=== PATIENT | male | born 1980 | race Two or more races ===

== ENCOUNTER 2016-12-28 11:54 | Emergency (ER) | payer MEDICAID ==
[2016-12-28 12:12] VITALS: BP 137/84
--- NOTE | 2016-12-28 13:25 | ER Document Report ---
HPI - HPI Pain Level: 4 Notes: Patient is a 36-year-old autistic male who presents the ED with mother complaining of left wrist and left hand pain status post hitting a door yesterday. Mother states that he has self-harm behavior regularly and this is the third door that is broken. Mother states that she has noticed some swelling , abrasion, and bruising to the left hand and wrist. Mother states that patient has expressed pain to the area as well. He has not had any over-the- counter meds for symptoms. Denies any drug allergies, smoking, illicit drug use. Pain does not radiate. Pt is still moving his hand and wrist around without difficulty. Per mother: Denies any headache, fever, head injury, neck pain, chest pain, syncope, cough, shortness of breath, wheeze, dyspnea, abdominal pain, nausea/vomiting/diarrhea, muscle paralysis/weakness, or rash. - ROS ROS Unobtainable: Yes ROS unobtainable due to patient's medical condition - see hpi otherwise. - DERM Skin Color: Normal Past Medical History - General Information source: Parent Cannot obtain history due to: Mentally challenged - Social History Smoking Status: Never Smoker Family History: Reviewed & Not Pertinent - Past Medical History Cardiac Medical History: Reports: Hx Hypercholesterolemia Denies: Hx Coronary Artery Disease, Hx Heart Attack, Hx Hypertension Pulmonary Medical History: Denies: Hx Asthma, Hx Bronchitis, Hx COPD, Hx Pneumonia Neurological Medical History: Reports: Hx Seizures - age 8 unknown reason,again age 11. Denies: Hx Cerebrovascular Accident Endocrine Medical History: Reports: Hx Diabetes Mellitus Type 2 Renal/ Medical History: Denies: Hx Peritoneal Dialysis Musculoskeltal Medical History: Reports Hx Arthritis - B/L HANDS, KNEES, FEET Past Surgical History: Reports: Hx Bowel Surgery - hernia repair, Hx Oral Surgery, Hx Testicular Surgery, Hx Tonsillectomy - Immunizations Hx Diphtheria, Pertussis, Tetanus Vaccination: Yes Vertical Provider Document - CONSTITUTIONAL Agree With Documented VS: Yes Notes: PHYSICAL EXAMINATION: GENERAL: Well-appearing, well-nourished and in no acute distress. LUNGS: Breath sounds clear to auscultation bilaterally and equal. No wheezes rales or rhonchi. HEART: Regular rate and rhythm without murmurs, rubs, gallops. Musculoskeletal: Left hand: FROM to passive/active. Strength 5+/5. + mild swelling and small abrasions to the posterior hand. N/V intact distal. No obvious tenderness to palp of the hand or scaphoid. Left wrist: + abrasion to the postero-dorsal wrist. + mild swelling and ecchymosis. + tenderness to palp. FROM to passive/active. N/V intact distal. Extremities: No cyanosis, clubbing, or edema b/l. Peripheral pulses 2+. Capillary refill less than 3 seconds. NEUROLOGICAL: Normal sensory, motor exams PSYCH: Normal mood, normal affect. SKIN: Warm, Dry, normal turgor, no rashes or lesions noted. - INFECTION CONTROL TRAVEL OUTSIDE OF THE [place] IN LAST 30 DAYS: No - RESPIRATORY O2 Sat by Pulse Oximetry: 100 Course - Re-evaluation Re-evalutation: 12/28/16 14:23 Patient is an afebrile, well-hydrated, 36yo autistic male who presents to the ED with mother with a Lt wrist/hand contusion/injury. Vitals are stable. PE otherwise unremarkable. Mother stated that they had to leave because pt's sugar is getting low. We offerred food and juice in the ED, but mother declined and just wanted to leave after getting the XR's performed. Reviewed with the mother of the conservative measures for his symptoms and made sure we had a good phone number so that we can call her with the results and any further guidance. Mother signed AMA. Low suspicion for any septic joint, sepsis, compartment syndrome, neurovasc compromise, fracture, or other emergent condition at this time. I did not see any obvious fracture on my view of the XR' s, but we will wait for the formal read from the radiologist. Recheck with PCM in 2-3 days. Consider consult with Ortho/physical therapy. Return to the ED with any worsening/concerning symptoms otherwise as reviewed discharge. Mother is in agreement. 12/28/16 15:00 XR unremarkable for acute fx or dislocation. + swelling noted. Left VM on mother's phone to call me back to review results. 12/28/16 15:49 Called mother again and she answered. Reviewed XR result and d/c instructions again. Mother is in agreement with plan. - Vital Signs Vital signs: Temp Pulse Resp BP Pulse Ox 98 F 85 20 137/84 H 100 12/28/16 12:08 12/28/16 12:08 12/28/16 12:08 12/28/16 12:08 12/28/16 12:08 Discharge - Discharge Clinical Impression: Arm pain, left Condition: Stable Disposition: HOME, SELF-CARE Instructions: Acetaminophen, Ice & Elevation ([facility]) Additional Instructions: Rest, Ice, Compression, Elevation Tylenol/ibuprofen as needed Light stretches daily Strength exercises as able Moist heat and massage may help F/u with your PCP in 2-3 days for a recheck Consider consult(s) with Orthopedics/physical therapy for ongoing/worsening symptoms Return to the ED with any worsening symptoms and/or development of fever, headache, chest pain, palpitations, syncope, shortness of breath, trouble breathing, abdominal pain, n/v/d, muscle weakness/paralysis, numbness/tingling, swelling, redness, or other worsening symptoms that are concerning to you. Forms: Elevated Blood Pressure Referrals: YASMIN TELLES MD [ACTIVE STAFF] - 12/31/16
--- NOTE | 2016-12-28 14:36 | RADIOLOGY REPORT (SQ) ---
EXAM DESCRIPTION: HAND LEFT 3 VIEWS; WRIST LEFT 3 VIEWS COMPLETED DATE/TIME: 12/28/2016 2:13 pm REASON FOR STUDY: left wrist/hand pain s/p hitting a door COMPARISON: None. EXAM PARAMETERS: NUMBER OF VIEWS: Six views. TECHNIQUE: AP, lateral and oblique radiographic images acquired of the left hand with AP, lateral ob lique views of the left wrist. LIMITATIONS: None. FINDINGS: MINERALIZATION: Normal. BONES: No acute fracture or dislocation. No worrisome bone lesions. JOINTS: No effusions. SOFT TISSUES: Mild soft tissue swelling along the distal forearm. OTHER: No other significant finding. IMPRESSION: Soft tissue swelling without evidence of fracture. TECHNICAL DOCUMENTATION: JOB ID: [id number] [employer]- All Rights Reserved
--- NOTE | 2016-12-28 14:36 | RADIOLOGY REPORT (SQ) ---
EXAM DESCRIPTION: HAND LEFT 3 VIEWS; WRIST LEFT 3 VIEWS COMPLETED DATE/TIME: 12/28/2016 2:13 pm REASON FOR STUDY: left wrist/hand pain s/p hitting a door COMPARISON: None. EXAM PARAMETERS: NUMBER OF VIEWS: Six views. TECHNIQUE: AP, lateral and oblique radiographic images acquired of the left hand with AP, lateral ob lique views of the left wrist. LIMITATIONS: None. FINDINGS: MINERALIZATION: Normal. BONES: No acute fracture or dislocation. No worrisome bone lesions. JOINTS: No effusions. SOFT TISSUES: Mild soft tissue swelling along the distal forearm. OTHER: No other significant finding. IMPRESSION: Soft tissue swelling without evidence of fracture. TECHNICAL DOCUMENTATION: JOB ID: [id number] [employer]- All Rights Reserved
== END 2016-12-28 14:10 | disposition home or self-care (01) ==
LOC: ER 11:54
DX: S60.222A Contusion of left hand, initial encounter (principal); S60.212A Contusion of left wrist, initial encounter; M25.532 Pain in left wrist; M79.642 Pain in left hand; W22.8XXA Striking against or struck by other objects, initial encounter; Y92.009 Unspecified place in unspecified non-institutional (private) residence as the place of occurrence of the external cause; F84.0 Autistic disorder; E11.9 Type 2 diabetes mellitus without complications
CPT/HCPCS: 99283

== ENCOUNTER 2017-04-05 08:24 | Day surgery (SDC) | payer MEDICAID ==
[~2017-04-05 08:24] MED LIST: DIPHENHYDRAMINE HCL 50 MG/ML VIAL ONE; EPINEPHRINE INJ 1 MG/10 ML DISP.SYRIN ONE; FLUMAZENIL INJ 0.5 MG/5 ML VIAL ONE; GLUCAGON,HUMAN RECOMB 1 MG INJ ONE; NALOXONE HCL INJ/PF 0.4 MG/1 ML SDV ONE; ONDANSETRON HCL INJ/PF 4 MG/2 ML SDV ONE
[2017-04-05] MEDS: MIDAZOLAM 2 MG/2 ML INJ ONE ×2 (09:10→09:15)
[2017-04-05] MEDS: FENTANYL CITRATE INJ/PF 100 MCG/2 ML AMPUL ONE ×3 (09:12→09:19)
[2017-04-05] MEDS ORDERED: DIPHENHYDRAMINE HCL 50 MG/ML VIAL IV PRN (10:36)
[2017-04-05] MEDS ORDERED: MORPHINE SULFATE 10 MG/ML INJ IV PRN (10:36)
[2017-04-05] MEDS ORDERED: FENTANYL CITRATE INJ/PF 100 MCG/2 ML AMPUL IV PRN (10:36)
[2017-04-05] MEDS ORDERED: PROMETHAZINE HCL INJ 25 MG/1 ML VIAL IV PRN (10:36)
[2017-04-05] MEDS ORDERED: ONDANSETRON HCL INJ/PF 4 MG/2 ML SDV IV PRN (10:36)
[2017-04-05] MEDS ORDERED: MEPERIDINE HCL/PF INJ 25 MG/1 ML DISP.SYRIN IV PRN (10:36)
[2017-04-05] MEDS ORDERED: KETAMINE HCL INJ 500 MG/10 ML VIAL ONE (10:58)
[2017-04-05] MEDS ORDERED: MIDAZOLAM 2 MG/2 ML INJ ONE (10:58)
[2017-04-05] MEDS ORDERED: PROPOFOL INJ 200 MG/20 ML VIAL IV ONE (10:58)
[2017-04-05] MEDS ORDERED: FENTANYL CITRATE INJ/PF 100 MCG/2 ML AMPUL ONE (10:58)
[2017-04-05] MEDS ORDERED: DEXMEDETOMIDINE INJ 80 MCG/20 ML VIAL IV ONE (10:59)
--- NOTE | 2017-04-05 11:36 | Operative Report ---
Operative Report DATE OF SURGERY: 04/05/17 Operative Report: The risks benefits and alternatives of the procedure explained to the patient in detail and informed consent is obtained.A GIF Olympus video scope was inserted into the patient's mouth and hypopharynx, the esophagus is identified intubated and insufflated ,the scope was then advanced through the esophagus stomach and duodenum ,retroflexion maneuver is done ,the esophagus stomach and first and second portions of the duodenum examined PREOPERATIVE DIAGNOSIS: Nausea vomiting, regurgitation POSTOPERATIVE DIAGNOSIS: Esophagitis versus Turpin's status post biopsy. Gastritis status post biopsy rule out Helicobacter pylori OPERATION: EGD with biopsy SURGEON: KRISTINE HERNANDEZ ANESTHESIA: LMAC TISSUE REMOVED OR ALTERED: As noted above. COMPLICATIONS: None. ESTIMATED BLOOD LOSS: None. INTRAOPERATIVE FINDINGS: As described above. Initial attempts at performing the procedure with conscious sedation medication is unsuccessful. Patient had to be taken down to the operating room for propofol, ketamine sedation PROCEDURE: Patient tolerated procedure well. No immediate postprocedure complications are noted. Patient discharged in good condition. Discharge date 04/05/2017. Discharge diet: Regular. Discharge activity: Regular. 2-3 week follow-up to discuss findings. Patient is instructed call the office or proceed to the emergency room should there be any further problems or questions. We will await pathology.
[2017-04-05 13:19] VITALS: BP 128/74
[2017-04-05] MEDS ORDERED: ONDANSETRON HCL INJ/PF 4 MG/2 ML SDV ONE (13:46)
[2017-04-05] MEDS ORDERED: LIDOCAINE 2% INJ-PF (20 MG/ML) 2 ML AMPUL ONE (13:46)
== END 2017-04-05 13:05 | disposition home or self-care (01) ==
LOC: END 08:24
PROVIDERS: ATTEND Internal Medicine Gastroenterology
PROC: 0DB58ZX Excision of Esophagus, Via Natural or Artificial Opening Endoscopic, Diagnostic (ICD-10-PCS; 2017-04-05)
PROC: 0DB68ZX Excision of Stomach, Via Natural or Artificial Opening Endoscopic, Diagnostic (ICD-10-PCS; principal; 2017-04-05 08:30)
DX: K20.9 Esophagitis, unspecified (principal); K29.70 Gastritis, unspecified, without bleeding; E11.9 Type 2 diabetes mellitus without complications; F84.0 Autistic disorder; Z79.899 Other long term (current) drug therapy; Z79.4 Long term (current) use of insulin; Z79.84 Long term (current) use of oral hypoglycemic drugs; Z88.1 Allergy status to other antibiotic agents
CPT/HCPCS: 43239; 82962; 88342 ×2; 88305 ×2; J2250; J3010; J2405; J2704; J3490 ×2; 43235; 740; J0171; J1200; J1610; J2310

== ENCOUNTER 2017-11-22 06:30 | Observation (INO) | payer MEDICAID ==
[~2017-11-22 06:30] MED LIST changes: -DIPHENHYDRAMINE HCL 50 MG/ML VIAL ONE; -EPINEPHRINE INJ 1 MG/10 ML DISP.SYRIN ONE; -FLUMAZENIL INJ 0.5 MG/5 ML VIAL ONE; -GLUCAGON,HUMAN RECOMB 1 MG INJ ONE; +LACTATED RINGERS 1000 ML IV PRN; +LIDOCAINE 0.5% INJ-PF (5 MG/ML) 50 ML SDV SUBCUT PRN; -NALOXONE HCL INJ/PF 0.4 MG/1 ML SDV ONE; -ONDANSETRON HCL INJ/PF 4 MG/2 ML SDV ONE
[2017-11-22] MEDS ORDERED: MIDAZOLAM 2 MG/2 ML INJ ONE ×2 (06:32→07:14)
[2017-11-22] MEDS ORDERED: LIDOCAINE 2% INJ-PF (20 MG/ML) 10 ML AMPUL ONE (06:32)
[2017-11-22] MEDS ORDERED: FENTANYL CITRATE INJ/PF 100 MCG/2 ML AMPUL ONE (06:32)
[2017-11-22] MEDS ORDERED: PROPOFOL INJ 200 MG/20 ML VIAL IV ONE (06:33)
[2017-11-22] MEDS ORDERED: ONDANSETRON HCL INJ/PF 4 MG/2 ML SDV ONE (06:33)
[2017-11-22] MEDS ORDERED: DEXAMETHASONE SOD PHOSPHATE INJ 4 MG/1 ML VIAL ONE (06:33)
[2017-11-22] MEDS ORDERED: ACETAMINOPHEN 1,000 MG/100 ML RTUPB IV ONE (06:33)
[2017-11-22] MEDS ORDERED: CIPROFLOXACIN HCL/FLUOCINOLONE 0.3%/0.025% OTIC ONE (06:34)
[2017-11-22] MEDS ORDERED: DIPHENHYDRAMINE HCL 50 MG/ML VIAL IV PRN (09:15)
[2017-11-22] MEDS ORDERED: MEPERIDINE HCL/PF INJ 25 MG/1 ML DISP.SYRIN IV PRN (09:15)
[2017-11-22] MEDS ORDERED: MORPHINE SULFATE 10 MG/ML INJ IV PRN (09:15)
[2017-11-22] MEDS ORDERED: FENTANYL CITRATE INJ/PF 100 MCG/2 ML AMPUL IV PRN ×3 (09:15)
[2017-11-22] MEDS ORDERED: PROMETHAZINE HCL INJ 25 MG/1 ML VIAL IV PRN ×2 (09:15)
[2017-11-22] MEDS ORDERED: ONDANSETRON HCL INJ/PF 4 MG/2 ML SDV IV PRN ×2 (09:15→09:22)
[2017-11-22] MEDS ORDERED: MORPHINE SULFATE 10 MG/ML INJ ONE (09:38)
[2017-11-22] MEDS ORDERED: RINGERS SOLUTION,LACTATED 1,000 ML IV PRN (11:04)
[2017-11-22 11:10] VITALS: BP 135/75
[2017-11-22] MEDS ORDERED: SUCCINYLCHOLINE CHLORIDE INJ 200 MG/10 ML VIAL ONE (14:38)
--- NOTE | 2017-11-27 20:00 | OPERATIVE REPORT E ---
Operative Report NAME: JOSUE JO : 1980 AGE: 37Y DATE OF SURGERY: 11/22/2017 ROOM: OR PREOPERATIVE DIAGNOSES: 1. RECURRENT ACUTE OTITIS MEDIA. 2. DEVELOPMENTAL DISORDER. 3. MACROGLOSSIA. POSTOPERATIVE DIAGNOSIS: 1. RECURRENT ACUTE OTITIS MEDIA. 2. DEVELOPMENTAL DISORDER. 3. MACROGLOSSIA. OPERATION: 1. Bilateral myringotomy with tympanostomy tube placement. 2. Bilateral transnasal flexible diagnostic endoscopy. 3. Revision adenoid/nasopharyngeal surgery. SURGEON: ASHANTI DHILLON D.O. ANESTHESIA: General endotracheal tube. ANESTHESIA STAFF: ERIK Lang ESTIMATED BLOOD LOSS: 1 mL FLUIDS: 500 mL COMPLICATIONS: None. DRAINS: None. SPONGE COUNT: Verified. MATERIALS FORWARDED SPECIMEN: None. FINDINGS: 1. The tympanic membranes were intact, and there were scant mucoid middle ear effusions present. 2. There was cory hypertrophy noted. 3. There were no sinonasal polyps or discharge noted. 4. There was significant macroglossia noted. 5. There was a prominent anterior canal wall overhang bilateral. INDICATIONS: This is a 37-year-old white male with developmental disorder, who was seen and evaluated in the [place] [facility] office. The patient had been referred for and the patient's mother voiced concern for history of acute recurrent otitis media episodes requiring antibiotics each year over the years. The patient has been followed by ENT as well over the years. He has previously undergone ear tubes and tonsil and adenoid surgery. The clinic-based examination overall is difficult. After extensive discussion with the patient's mother, recommendation and plan was for ear tubes with use of a long-term type ear tube using Lamonte T-tubes, revision adenoid/nasopharyngeal surgery, and bilateral transnasal flexible diagnostic endoscopy for exam under anesthesia of the upper airway. The procedures and all of their risks and complications were all discussed in detail with the patient's mother. She voiced an understanding of the described surgical plan, agreed to proceed, and consent was obtained. PROCEDURE: The patient was taken to the main operating room and placed on the operating room table in the supine position. Appropriate monitors were placed. Using mask and IV access, general anesthesia was induced. The patient was transorally intubated without difficulty. At this point, the patient underwent a bilateral transnasal flexible diagnostic endoscopy with no sinonasal polyps, masses, or lesions noted. The nasopharynx was with residual adenoid hypertrophy and especially cory hypertrophy, and otherwise the remaining flexible endoscopy was difficult due to the significant macroglossia and tongue base fullness. At this point, the microscope was brought into position and the ears were examined through an ear speculum with cerumen cleared on each side. At this point, there was an incision made in the inferior to posterior quadrant of each tympanic membrane, as there was a significant anterior canal wall overhang. Slight mucoid middle ear effusions were suctioned, followed by placement of a Lamonte T-tube on each side followed by placement of Otovel ear drops. At this point, the operating room microscope was withdrawn. The patient's lips, teeth, tongue and inside of the mouth were inspected and noted to be without defects. There was a mouth gag inserted. It was opened, and the patient was placed into suspension. There was a soft catheter placed through the patient's nose that was used to suspend the soft palate. As such, at this point with use of the suction electrocautery handpiece, there was adenoid tissue and cory tissue ablation performed without difficulty. There was adequate hemostasis noted. Findings are as noted above. Saline irritation was performed and suctioned. There was adequate hemostasis noted. The soft catheter was next released and removed from the patient's nose. The mouth gag was removed from the patient's mouth without difficulty. There was no damage to the lips, teeth, tongue, gums, or inside of the mouth. The patient was then returned to the anesthesia staff and was allowed to emerge from general anesthesia. The patient was extubated in the main operating room and was then transported to the post-anesthesia recovery unit in stable condition. There were no complications. DICTATING PHYSICIAN: ASHANTI DHILLON D.O. [id number] PHY#: [id number] ID: [id number] JOB#: [id number] ACCT: [id number] cc:ASHANTI DHILLON D.O. >
== END 2017-11-22 10:55 | disposition home or self-care (01) ==
LOC: OROUT 06:30 → INOR 06:30 → EDSTATUS 07:30 → OROUT 10:55
PROVIDERS: ADMIT Otolaryngology; ATTEND Otolaryngology
PROC: 099580Z Drainage of Right Middle Ear with Drainage Device, Via Natural or Artificial Opening Endoscopic (ICD-10-PCS; 2017-11-22)
PROC: 0CBQXZZ Excision of Adenoids, External Approach (ICD-10-PCS; 2017-11-22)
PROC: 0C53XZZ Destruction of Soft Palate, External Approach (ICD-10-PCS; 2017-11-22)
PROC: 099680Z Drainage of Left Middle Ear with Drainage Device, Via Natural or Artificial Opening Endoscopic (ICD-10-PCS; principal; 2017-11-22 07:30)
DX: H66.90 Otitis media, unspecified, unspecified ear (principal); Q38.2 Macroglossia; R13.10 Dysphagia, unspecified; F89 Unspecified disorder of psychological development; J35.2 Hypertrophy of adenoids; K13.79 Other lesions of oral mucosa; E11.9 Type 2 diabetes mellitus without complications; Z79.84 Long term (current) use of oral hypoglycemic drugs
CPT/HCPCS: 69436; 42831; 42160; 82962; J2250; J1100; J3010; J2270; J0330; J2405; J2704; J3490 ×2; J0131; 170

== ENCOUNTER → 2018-06-03 | Outpatient (CLI) | payer MEDICAID ==
--- NOTE | 2018-06-03 15:53 | RADIOLOGY REPORT (SQ) ---
EXAM DESCRIPTION: BARIUM SWALLOW ESOPHAGUS COMPLETED DATE/TIME: 06/03/2018 9:49 am REASON FOR STUDY: DYSPHAGIA R13.10 DYSPHAGIA, UNSPECIFIED COMPARISON: None. TECHNIQUE: Under fluoroscopic guidance, patient ingested thick and thin barium. Fluoroscopic spot im ages and routine radiographic images acquired and stored on PACS. 12 MM BARIUM TABLET GIVEN: The patient swallowed a 12 mm barium tablet which passed easily through th e esophagus and into the stomach without delay. LIMITATIONS: None. FLUOROSCOPY TIME: 1.12 minutes 6 images saved to PACS. FINDINGS: NEUROMUSCULAR COORDINATION OF SWALLOW: Normal. No aspiration. ESOPHAGEAL MOTILITY: Normal peristalsis. No esophageal spasm. ESOPHAGEAL MUCOSA: Normal mucosa without masses or ulceration. GASTRO-ESOPHAGEAL JUNCTION: Small sliding hiatal hernia present. Moderate gastroesophageal reflux de monstrated. NON-GI TRACT STRUCTURES: No significant finding. OTHER: No other significant finding. IMPRESSION: SMALL SLIDING HIATAL HERNIA WITH MODERATE GASTROESOPHAGEAL REFLUX. OTHERWISE UNREMARKAB LE STUDY. . COMMENT: None Quality ID [id number]: Final reports for procedures using fluoroscopy that document radiation exposure kamlesh claude, or exposure time and number of fluorographic images (if radiation exposure indices are not avail able) TECHNICAL DOCUMENTATION: JOB ID: [id number] [employer]- All Rights Reserved Reading location - IP/workstation name: [id number]
== END ==
LOC: RAD 08:50
PROVIDERS: ATTEND Internal Medicine
DX: K21.9 Gastro-esophageal reflux disease without esophagitis (principal); R13.10 Dysphagia, unspecified; K44.9 Diaphragmatic hernia without obstruction or gangrene
CPT/HCPCS: 74220

== ENCOUNTER → 2018-07-14 | Outpatient (CLI) | payer MEDICAID ==
[2018-07-14 11:51] LABS: HEMATOCRIT 41.2 % (37.9-51.0); HEMOGLOBIN 14.2 g/dL (13.5-17.0); MEAN CORPUSCULAR HEMOGLOBIN 28.4 pg (27.0-33.4); MEAN CORPUSCULAR HGB CONC 34.5 g/dL (32.0-36.0); MEAN CORPUSCULAR VOLUME 82 fl (80-97); PLATELET COUNT 254 10^3/uL (150-450); RED CELL DISTRIBUTION WIDTH 13.6 % (11.5-14.0); WHITE BLOOD COUNT 7.2 10^3/uL (4.0-10.5)
[2018-07-14 11:56] LABS: APPEARANCE,URINE CLEAR; BILIRUBIN,URINE NEGATIVE (NEGATIVE); COLOR,URINE YELLOW; GLUCOSE, URINE NEGATIVE (NEGATIVE); KETONES,URINE NEGATIVE (NEGATIVE); LEUKOCYTE ESTERASE,URINE NEGATIVE (NEGATIVE); NITRITE,URINE NEGATIVE (NEGATIVE); PROTEIN,URINE NEGATIVE (NEGATIVE); URINE SPECIFIC GRAVITY 1.013; UROBILINOGEN,URINE NEGATIVE mg/dL (<2.0)
[2018-07-14 12:13] LABS: ABSOLUTE MONOCYTES # (MANUAL) 0.4 10^3/uL (0.1-1.4); ABSOLUTE NEUTROPHILS# (MANUAL) 4.5 10^3/uL (1.7-8.2); BAND NEUTROPHILS % (MANUAL) 2 % (3-5); BASOPHILS % (MANUAL) 0 % (0-2); EOSINOPHILS % (MANUAL) 4 % (0-6); LYMPHOCYTES % (MANUAL) 24 % (13-45); MONOCYTES % (MANUAL) 6 % (3-13); PLATELET COMMENT ADEQUATE; RBC MORPHOLOGY COMMENT NORMO-CYTIC/CHROMIC; SEGMENTED NEUTROPHILS % (MAN) 60 % (42-78); TOTAL CELLS COUNTED 100
[2018-07-14 12:14] LABS: ALANINE AMINOTRANSFERASE 66 U/L (21-72); ALKALINE PHOSPHATASE 65 U/L (38-126); ANION GAP 13 (5-19); ASPARTATE AMINO TRANSFERASE 46 U/L (17-59); BILIRUBIN,DIRECT 0.2 mg/dL (0.0-0.4); BILIRUBIN,TOTAL 0.4 mg/dL (0.2-1.3); BLOOD UREA NITROGEN 8 mg/dL (7-20); CALCIUM 9.9 mg/dL (8.4-10.2); CARBON DIOXIDE 28 mmol/L (22-30); CHLORIDE 96 mmol/L (98-107); CHOLESTEROL 188.95 mg/dL (0-200); GLUCOSE 121 mg/dL (75-110); POTASSIUM 4.7 mmol/L (3.6-5.0); SODIUM 137.3 mmol/L (137-145); TOTAL PROTEIN 7.8 g/dL (6.3-8.2); TRIGLYCERIDES 239 mg/dL (<150); URIC ACID 6.6 mg/dL (3.5-8.5)
[2018-07-14 12:25] LABS: DIRECT LDL 121 mg/dL (<100)
[2018-07-14 12:29] LABS: VLDL CHOLESTEROL 47.8 mg/dL (10-31)
[2018-07-14 12:30] LABS: FREE T4 (FREE THYROXINE) 1.1 ng/dL (0.78-2.19)
[2018-07-14 12:45] LABS: THYROID STIMULATING HORMONE 0.86 uIU/mL (0.47-4.68)
[2018-07-15 12:38] LABS: CREATININE URINE 172.8 mg/dL (Not Estab.); MICROALBUMIN URINE 74.7 ug/mL (Not Estab.)
== END ==
LOC: OD 10:29
PROVIDERS: ATTEND Internal Medicine
DX: E11.9 Type 2 diabetes mellitus without complications (principal)
CPT/HCPCS: 36415; 80053; 80061; 81001; 82043; 82570; 83036; 84439; 84443; 84550; 85025

== ENCOUNTER 2018-08-04 23:28 | Emergency (ER) | payer MEDICAID ==
[2018-08-04 23:36] VITALS: BP 146/91
== END 2018-08-05 00:10 | disposition left against medical advice (07) ==
LOC: ER 23:28
DX: Z53.21 Procedure and treatment not carried out due to patient leaving prior to being seen by health care provider (principal); H92.21 Otorrhagia, right ear

== ENCOUNTER 2018-09-22 08:54 | Day surgery (SDC) | payer MEDICAID ==
[~2018-09-22 08:54] MED LIST changes: +CEFAZOLIN 2 GM/D5W RTU 2 GM/50 ML RTUPB IV PRN; +DEXAMETHASONE SOD PHOSPHATE INJ 4 MG/1 ML VIAL ONE; +FENTANYL CITRATE INJ/PF 100 MCG/2 ML AMPUL ONE; -LACTATED RINGERS 1000 ML IV PRN; -LIDOCAINE 0.5% INJ-PF (5 MG/ML) 50 ML SDV SUBCUT PRN; +MIDAZOLAM 2 MG/2 ML INJ ONE; +ONDANSETRON HCL INJ/PF 4 MG/2 ML SDV ONE; +PROPOFOL INJ 200 MG/20 ML VIAL IV ONE
[2018-09-22] MEDS ORDERED: ROCURONIUM BROMIDE INJ 50 MG/5 ML VIAL IV ONE (09:21)
[2018-09-22] MEDS ORDERED: CEFAZOLIN 2 GM/D5W RTU 2 GM/50 ML RTUPB IV ONE (10:07)
[2018-09-22] MEDS ORDERED: CIPROFLOXACIN HCL/FLUOCINOLONE 0.3%/0.025% OTIC ONE (10:16)
[2018-09-22] MEDS ORDERED: OXYMETAZOLINE HCL 0.05% NASAL SPRAY 15 ML BOTTLE ONE (10:17)
[2018-09-22] MEDS: BUPIVACAINE HCL 0.5%/EPI 1:200000 INJ 1.8 ML CARTRIDGE ONE ×4 (10:21→11:37)
[2018-09-22] MEDS ORDERED: EPHEDRINE SULFATE INJ 50 MG/1 ML AMPULE ONE (10:46)
== END 2018-09-22 13:44 | disposition home or self-care (01) ==
LOC: SC 08:54
PROVIDERS: ATTEND Otolaryngology
DX: H65.91 Unspecified nonsuppurative otitis media, right ear (principal); H61.23 Impacted cerumen, bilateral; H66.90 Otitis media, unspecified, unspecified ear; F89 Unspecified disorder of psychological development; Q38.2 Macroglossia; L02.11 Cutaneous abscess of neck; L72.0 Epidermal cyst; H92.13 Otorrhea, bilateral; E11.9 Type 2 diabetes mellitus without complications; K21.9 Gastro-esophageal reflux disease without esophagitis; Z79.4 Long term (current) use of insulin; Z79.84 Long term (current) use of oral hypoglycemic drugs; Z79.899 Other long term (current) drug therapy
CPT/HCPCS: 82962; 88305 ×2; 69436; 11423; J2250; J3490 ×5; J1100; J3010; J2405; J2704; J0690; 300; 88304

== ENCOUNTER 2019-12-30 08:36 | Day surgery (SDC) | payer MEDICAID ==
[~2019-12-30 08:36] MED LIST changes: -CEFAZOLIN 2 GM/D5W RTU 2 GM/50 ML RTUPB IV PRN; -DEXAMETHASONE SOD PHOSPHATE INJ 4 MG/1 ML VIAL ONE; -FENTANYL CITRATE INJ/PF 100 MCG/2 ML AMPUL ONE; +LACTATED RINGERS 1000 ML IV PRN; +LIDOCAINE 0.5% INJ-PF (5 MG/ML) 50 ML SDV SUBCUT PRN; -MIDAZOLAM 2 MG/2 ML INJ ONE; -ONDANSETRON HCL INJ/PF 4 MG/2 ML SDV ONE; -PROPOFOL INJ 200 MG/20 ML VIAL IV ONE
[2019-12-30] MEDS ORDERED: OXYMETAZOLINE HCL 0.05% NASAL SPRAY 15 ML BOTTLE ONE (10:39)
[2019-12-30] MEDS ORDERED: CIPROFLOXACIN HCL/FLUOCINOLONE 0.3%/0.025% OTIC ONE ×2 (10:53→11:43)
[2019-12-30] MEDS ORDERED: MIDAZOLAM 2 MG/2 ML INJ ONE ×2 (11:12→11:37)
[2019-12-30] MEDS ORDERED: MIDAZOLAM 2 MG/2 ML INJ IV ONE (11:30)
[2019-12-30] MEDS ORDERED: FENTANYL CITRATE INJ/PF 100 MCG/2 ML AMPUL ONE (11:37)
[2019-12-30] MEDS ORDERED: PROPOFOL INJ 200 MG/20 ML VIAL IV ONE (11:37)
[2019-12-30] MEDS ORDERED: LIDOCAINE 2% INJ-PF (20 MG/ML) 10 ML AMPUL ONE (11:37)
[2019-12-30] MEDS ORDERED: HYDROMORPHONE HCL INJ/PF 2 MG/ML AMPULE ONE (11:37)
[2019-12-30] MEDS ORDERED: DEXAMETHASONE SOD PHOSPHATE INJ 4 MG/1 ML VIAL ONE (11:38)
[2019-12-30] MEDS ORDERED: ONDANSETRON HCL INJ/PF 4 MG/2 ML SDV ONE (11:38)
[2019-12-30 14:23] VITALS: BP 156/86
--- NOTE | 2020-01-04 22:14 | Operative Report ---
Operative Report-[facility] Operative Report: DATE OF SURGERY: December 30, 2019 PREOPERATIVE DIAGNOSIS: 1. Chronic eustachian tube dysfunction 2. History of bilateral T-tubes 3. Chronic recurrent otorrhea 4. Developmental delays/disabilities POSTOPERATIVE DIAGNOSIS: 1. Chronic eustachian tube dysfunction 2. History of bilateral T-tubes 3. Chronic recurrent otorrhea 4. Developmental delays/disabilities PROCEDURE: 1. Bilateral myringotomy with tympanostomy tubes using Lamonte T-tubes 2. Right T-tube removal under microscopy under general anesthesia 3. Exam under anesthesia/EUA of the ears under general anesthesia under microscopy SURGEON: Dr. Marcus Goddard Anesthesia Staff: ERIK Davenport ANESTHESIA: General Mask Anesthesia DRAINS: None SPONGE COUNT: N/A ESTIMATED BLOOD LOSS: Less than 1 mL FLUIDS: mL SPECIMEN/MATERIALS FORWARD TO THE LAB: None COMPLICATIONS: None FINDINGS: 1. The left tympanic membrane/TM was with no ear tube noted, and there was no middle ear effusion noted. 2. The right Lamonte T-tube was at the posterior inferior TM aspect with increased cerumen and the T-tube was canted/tilted and pressing into the EAC lining with moist debris present, and no middle ear effusion was noted. INDICATIONS: This is a 39-year-old male patient with developmental delays/disabilities who has been seen, evaluated, and followed in the [place] [facility] office. The patient had undergone placement of bilateral Lamonte T-tubes approximately 1 year prior and had been doing well overall until he begin to have difficulty with otorrhea and extrusion/loss of the left ear tube and recurrent right otorrhea. After extensive discussion with the patient's mother the recommendation and plan was made to return to the operating room and proceed with an exam under anesthesia of the ears under microscopy, removal of previous ear tubes/tubes, and placement of new Lamonte T-tubes. The procedure and all of the risks and complications were all discussed in detail with the patient's mother. She voiced an understanding, agreed to proceed, and consent was obtained. PROCEDURE: The patient was taken to the main operating room and placed on the operating room table in the supine position. Appropriate monitors were placed. Using mask and IV access general anesthesia was induced and the patient was then transorally intubated without difficulty. The operating room microscope was next brought into position and the left ear was examined along with use of an ear speculum. Cerumen was cleared. The left tympanic membrane and left ear findings are as noted above. A myringotomy incision was made at the previous posterior inferior tympanic membrane followed by placement of a Lamonte T-tube followed by placement of Otovel ear drops. Attention was turned to the right ear which was examined in similar fashion under microscopy. Cerumen was cleared as before. The right tympanic membrane and right ear findings are as noted above. The right Lamonte T-tube and surrounding cerumen and moist debris were all cleared and the tube removed followed by placement of a new Lamonte T-tube followed by placement of a piece of Epi disc laterally to support the new T-tube and stabilize it in position in the tympanic membrane. The operating room microscope was next with- drawn and the patient was returned to the anesthesia staff. The patient was allowed to emerge from general anesthesia, the patient was extubated without difficulty in the operating room, and was then transferred to the post-anesth esia recovery area in stable condition. There were no complications.
== END 2019-12-30 14:20 | disposition home or self-care (01) ==
LOC: OROUT 08:36
PROVIDERS: ATTEND Otolaryngology
DX: H69.81 Other specified disorders of Eustachian tube, right ear (principal); H92.12 Otorrhea, left ear; H92.09 Otalgia, unspecified ear; Z86.69 Personal history of other diseases of the nervous system and sense organs; Q38.2 Macroglossia; M26.4 Malocclusion, unspecified; F89 Unspecified disorder of psychological development; I10 Essential (primary) hypertension; E11.9 Type 2 diabetes mellitus without complications; E66.9 Obesity, unspecified; Z79.4 Long term (current) use of insulin; Z79.899 Other long term (current) drug therapy; K21.9 Gastro-esophageal reflux disease without esophagitis; R62.50 Unspecified lack of expected normal physiological development in childhood; Z68.41 Body mass index [BMI] 40.0-44.9, adult; Z03.818 Encounter for observation for suspected exposure to other biological agents ruled out
CPT/HCPCS: 82962; 87635; 00126; 69436; J2250; J1100; J3010; J3490 ×3; J2405; J2704; C9803; 126; J1170